=== PATIENT | female | born 1950 | race Caucasian/White ===

== ENCOUNTER → 2019-09-22 08:34 | Outpatient (CLI) | payer MEDICARE, BC ==
[2010-08-21 07:58] VITALS: BMI 31.1
== END | disposition home or self-care (01) ==
LOC: D.HCCECHO 08:34
PROVIDERS: ATTEND Internal Medicine Cardiovascular Disease
DX: I25.10 Atherosclerotic heart disease of native coronary artery without angina pectoris (principal)